=== PATIENT | male | born 2000 | race Caucasian/White ===

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

== ENCOUNTER 2023-04-30 17:28 | Inpatient (IN) | payer BC, MEDICAID ==
[~2023-04-30] VITALS: Ht 167.6 cm; Wt 81.4 kg
[~2023-04-30 17:28] MED LIST: EPIN0.3P3 IM
[2023-04-30] MEDS ORDERED: acetaminophen 325mg tablet PO STA (17:33)
--- NOTE | 2023-04-30 17:33 | NUR ---
PT PLACED ON 4L O2 VIA NC WITH IMPROVEMENT TO 95% SPO2
[2023-04-30] MEDS ORDERED: ipratropium/albuterol 3ml nebule NEB ONE (17:35)
[2023-04-30] MEDS ORDERED: normal saline 1000ML IV soln IV ONE (17:35)
[2023-04-30 17:51] VITALS: PULSE 121; PULSE 78; RESP 18; RESP 2; O2SAT 92
[2023-04-30 18:22] LABS: BASOPHILS % (AUTO) 0.1 % (0-1); EOSINOPHILS # (AUTO) 0.1 X10'3 (0-0.9); EOSINOPHILS % (AUTO) 0.4 % (0-6); HEMATOCRIT 48.6 % (42.0-52.0); HEMOGLOBIN 16.2 g/dl (14.0-17.9); LYMPHOCYTES # (AUTO) 1.5 X10'3 (1.1-4.8); LYMPHOCYTES % (AUTO) 4.8 % (21-51); MEAN CORPUSCULAR HEMOGLOBIN 29.9 PG (27.0-31.0); MEAN CORPUSCULAR HGB CONC 33.4 g/dL (33.0-36.5); MEAN CORPUSCULAR VOLUME 89.3 FL (78-98); MEAN PLATELET VOLUME 9.5 FL (7.4-10.4); MONOCYTES # (AUTO) 2.6 X10'3 (0-0.9); MONOCYTES % (AUTO) 8.6 % (2-12); NEUTROPHILS % (AUTO) 86.1 % (42-75); PLATELET COUNT 279 X10'3 (140-440); RED BLOOD COUNT 5.44 X10'6 (4.70-6.10); RED CELL DISTRIBUTION WIDTH 13.3 % (11.5-14.5)
[2023-04-30 18:24] LABS: WHITE BLOOD COUNT 30.3 X10'3 (4.5-11.0)
[2023-04-30] MEDS ORDERED: CefTRIAXone/D5W-Rocephin 1gm 50 ML IV ONE (18:30)
[2023-04-30] MEDS ORDERED: azithromycin/NS 500mg/250ml 250 ML IV ONE (18:30)
[2023-04-30 19:00] LABS: ALANINE AMINOTRANSFERASE 34 U/L (12-78); ALBUMIN 3.8 G/DL (3.4-5.0); ALBUMIN/GLOBULIN RATIO 1.1 (1.1-1.5); ALKALINE PHOSPHATASE 79 IU/L (46-116); ANION GAP 10 (8-16); ASPARTATE AMINO TRANSFERASE 15 U/L (10-37); BLOOD UREA NITROGEN 9 MG/DL (7-18); BUN/CREATININE RATIO 9.8 (10.0-20.0); CALCIUM 9.9 MG/DL (8.5-10.1); CHLORIDE 103 MMOL/L (99-107); CREATININE 0.92 MG/DL (0.60-1.10); GLUCOSE 125 MG/DL (70-104); POTASSIUM 3.9 MMOL/L (3.5-5.1); SODIUM 137 MMOL/L (135-145); TOTAL CARBON DIOXIDE 23.6 MMOL/L (24-32); TOTAL PROTEIN 7.2 G/DL (6.4-8.2); eCRCL 115 ML/MIN; eGFR > 90 ML/MIN
[2023-04-30 19:08] LABS: PRO BRAIN NATRIURETIC PEPTIDE < 30 PG/ML (0-125)
--- NOTE | 2023-04-30 19:26 | NUR ---
NOTIFIED THE PA CHANTELL THAT PT IS C/O NAUSEA AND WOULD LIKE SOME CRACKER, PER PA VERBAL ORDER TO GIVE ZOFRAN 4 MG IV ONCE AND OK TO GIVE CRACKER.
[2023-04-30] MEDS ORDERED: ondansetron/PF 4mg/2ml inj IV ONE (19:30)
[2023-04-30 19:33] LABS: D-DIMER 0.83 MG/L FEU (0-0.50)
[2023-04-30] MEDS ORDERED: iohexol 350MG/ML 100ml bottle IV ONE (19:50)
[2023-04-30 20:09] LABS: BILIRUBIN,URINE SMALL (Neg); CLARITY,URINE SLIGHTLY CLOUDY (Clear); GLUCOSE, URINE NEGATIVE (Neg); KETONES,URINE 15 mg/dl (Neg); LEUKOCYTE ESTERASE ,URINE NEGATIVE (Neg); NITRITES, URINE NEGATIVE (Neg); OCCULT BLOOD,URINE TRACE-INTACT (Neg); PH,URINE 5.5 (4.8-8.0); PROTEIN,URINE TRACE mg/dl (Neg); UROBILINOGEN,URINE 0.2 E.U/dL (0.2-1.0)
[2023-04-30 20:26] LABS: COLOR,URINE DARK YELLOW (Yellow); UA COLLECTION TYPE VOIDED
[2023-04-30 20:40] LABS: MUCUS STRANDS MANY /LPF (Neg); SQUAMOUS EPITHELIAL CELL,UR FEW /LPF (FEW)
[2023-04-30 20:41] LABS: RBC,URINE 0-2 /HPF (0-2); TRANSITIONAL EPI CELLS,URINE FEW /HPF; WBC,URINE 0-4 /HPF (0-4)
[2023-04-30 20:45] LABS: AMORPHOUS URATES 1+
[2023-04-30 20:46] LABS: BACTERIA,URINE 1+ /HPF (Neg)
[2023-04-30 21:45] LABS: TOTAL CELLS COUNTED 100
[2023-04-30 21:50] LABS: PLATELET ESTIMATE NORMAL
[2023-04-30] MEDS ORDERED: albuterol 2.5 MG/3 ML nebule NEB ONE (23:05)
--- NOTE | 2023-04-30 23:06 | NUR ---
BED 6 BREATHING TREATMENT
[2023-04-30 23:23] VITALS: PULSE 105; RESP 16
[2023-04-30 23:34] VITALS: PULSE 102; RESP 18; O2SAT 92
[2023-05-01] VITALS (7 sets, daily range): BP systolic 113–114; BP diastolic 61–64; PULSE 118–133; RESP 16–22; TEMP 97.6–100.3; O2SAT 94–96
[2023-05-01] MEDS ORDERED: mag hydrox/Alum hydrox/simeth 30ml oral suspension PO PRN (00:50)
[2023-05-01] MEDS ORDERED: furosemide 40mg/4ml inj IV ONE (00:50)
[2023-05-01] MEDS ORDERED: potassium Cl 20 mEq SR tablet PO PRN ×2 (00:50)
[2023-05-01] MEDS ORDERED: magnesium 4gm in 100ml NS 100 ML IV PRN (00:50)
[2023-05-01] MEDS ORDERED: PERFLUTREN PROTEIN-A MICROSPHR (Optison) 0.22 MG/ML 3ML VIAL IV ONE (00:50)
[2023-05-01] MEDS ORDERED: magnesium hydroxide 30ml (MOM) UD suspension PO PRN (00:50)
[2023-05-01] MEDS ORDERED: acetaminophen 325mg tablet PO PRN (00:50)
[2023-05-01] MEDS ORDERED: HYDROcodone/acetaminophen 5mg/325mg tablet PO PRN (00:50)
[2023-05-01] MEDS ORDERED: ondansetron/PF 4mg/2ml inj IV PRN (00:50)
[2023-05-01] MEDS ORDERED: magnesium 2GM in 50ml NS 50 ML IV PRN (00:50)
[2023-05-01] MEDS ORDERED: albuterol 2.5 MG/3 ML nebule NEB PRN (00:50)
[2023-05-01] MEDS ORDERED: potassium Cl 40MEQ/1/2NS 520ml 520 ML IV PRN (00:50)
[2023-05-01] MEDS: normal saline 1000ml 1,000 ML IV SCH ×3 (01:36→20:50)
--- NOTE | 2023-05-01 02:10 | NUR ---
300mL urine output post lasix
--- NOTE | 2023-05-01 03:37 | NUR ---
900mL urine output
--- NOTE | 2023-05-01 06:39 | NUR ---
Patient in room ED 6. I have received report from FILIPE HOWE and had the opportunity to ask questions and assume patient care.
[2023-05-01 07:23] LABS: C-REACTIVE PROTEIN 12.53 MG/DL (0.0-0.5); MAGNESIUM 1.7 MG/DL (1.5-2.4)
[2023-05-01 07:53] LABS: RHEUM FACTOR QUAL REFLEX TITER NEGATIVE (Neg)
[2023-05-01] MEDS: K and/or MAG REPLACEMENT MC SCH ×2 (08:00→20:00)
[2023-05-01] MEDS: CefTRIAXone 2gm/D5W 50ml BAG 50 ML IV SCH (08:00)
[2023-05-01] MEDS: docusate sod 100mg capsule PO SCH ×2 (08:00→20:00)
[2023-05-01] MEDS: azithromycin/NS 500mg/250ml 250 ML IV SCH (08:41)
[2023-05-01 14:40] LABS: URINE AMPHETAMINE SCREEN NEGATIVE (Neg); URINE BARBITUATE SCREEN NEGATIVE (Neg); URINE BENZODIAZEPINES SCREEN NEGATIVE (Neg); URINE CANNABINOID SCREEN NEGATIVE (Neg); URINE COCAINE SCREEN NEGATIVE (Neg); URINE METHADONE SCREEN NEGATIVE (Neg); URINE OPIATE SCREEN NEGATIVE (Neg); URINE PHENCYCLIDINE SCREEN NEGATIVE (Neg)
[2023-05-01] MEDS: acetaminophen 325mg tablet PO PRN (17:25)
--- NOTE | 2023-05-01 18:59 | NUR ---
Problems reprioritized. Patient report given, questions answered & plan of care reviewed with FILIPE PERALTA.
[2023-05-01] MEDS: ipratropium/albuterol 3ml nebule NEB PRN (19:29)
[2023-05-02] VITALS (14 sets, daily range): BP systolic 119–126; BP diastolic 50–76; PULSE 95–125; RESP 15–22; TEMP 97.9–101.3; O2SAT 94–99
[2023-05-02] MEDS: ipratropium/albuterol 3ml nebule NEB PRN ×2 (01:47→11:21)
[2023-05-02] MEDS: acetaminophen 325mg tablet PO PRN (02:52)
[2023-05-02] MEDS ORDERED: VILA10TA2 PO (04:17)
[2023-05-02] MEDS: normal saline 1000ml 1,000 ML IV SCH (04:28)
--- NOTE | 2023-05-02 06:45 | NUR ---
Patient in room ORTHO 4021. I have received report from FILIPE Murillo and had the opportunity to ask questions and assume patient care.
[2023-05-02] MEDS: azithromycin/NS 500mg/250ml 250 ML IV SCH (07:03)
[2023-05-02] MEDS: docusate sod 100mg capsule PO SCH ×2 (07:06→20:00)
[2023-05-02] MEDS: HYDROcodone/acetaminophen 10/325mg tab PO PRN (07:06)
[2023-05-02 07:20] LABS: BASOPHILS % (AUTO) 0.2 % (0-1); EOSINOPHILS # (AUTO) 0.3 X10'3 (0-0.9); EOSINOPHILS % (AUTO) 1.5 % (0-6); HEMATOCRIT 42.2 % (42.0-52.0); LYMPHOCYTES # (AUTO) 1.5 X10'3 (1.1-4.8); LYMPHOCYTES % (AUTO) 8.1 % (21-51); MEAN CORPUSCULAR HEMOGLOBIN 29.8 PG (27.0-31.0); MEAN CORPUSCULAR HGB CONC 33.1 g/dL (33.0-36.5); MEAN PLATELET VOLUME 9.8 FL (7.4-10.4); MONOCYTES # (AUTO) 1.6 X10'3 (0-0.9); MONOCYTES % (AUTO) 8.7 % (2-12); NEUTROPHILS # (AUTO) 15.1 X10'3 (1.8-7.7); NEUTROPHILS % (AUTO) 81.5 % (42-75); PLATELET COUNT 198 X10'3 (140-440); RED BLOOD COUNT 4.69 X10'6 (4.70-6.10); RED CELL DISTRIBUTION WIDTH 13.3 % (11.5-14.5); WHITE BLOOD COUNT 18.5 X10'3 (4.5-11.0)
[2023-05-02 07:57] LABS: ALANINE AMINOTRANSFERASE 20 U/L (12-78); ALBUMIN 2.6 G/DL (3.4-5.0); ALBUMIN/GLOBULIN RATIO 0.7 (1.1-1.5); ALKALINE PHOSPHATASE 64 IU/L (46-116); ANION GAP 7 (8-16); ASPARTATE AMINO TRANSFERASE 7 U/L (10-37); BILIRUBIN,TOTAL 0.6 MG/DL (0.1-1.0); BLOOD UREA NITROGEN 4 MG/DL (7-18); BUN/CREATININE RATIO 4.2 (10.0-20.0); CALCIUM 8.5 MG/DL (8.5-10.1); CHLORIDE 102 MMOL/L (99-107); CREATININE 0.95 MG/DL (0.60-1.10); GLUCOSE 92 MG/DL (70-104); MAGNESIUM 1.8 MG/DL (1.5-2.4); POTASSIUM 4.2 MMOL/L (3.5-5.1); SODIUM 135 MMOL/L (135-145); THYROID STIMULATING HORMONE 1.66 ulU/ml (0.34-4.50); TOTAL CARBON DIOXIDE 26.4 MMOL/L (24-32); TOTAL PROTEIN 6.1 G/DL (6.4-8.2); eCRCL 111 ML/MIN; eGFR > 90 ML/MIN
[2023-05-02] MEDS: K and/or MAG REPLACEMENT MC SCH ×2 (08:00→20:00)
[2023-05-02 08:05] LABS: HIV ANTIBODY 1&2 RAPID NON-REACTIVE (Neg)
[2023-05-02] MEDS: CefTRIAXone 2gm/D5W 50ml BAG 50 ML IV SCH (08:49)
[2023-05-02] MEDS: acetaminophen 325mg tablet PO SCH (12:18)
[2023-05-02] MEDS ORDERED: furosemide 20 MG/2 ML vial IV ONE (16:30)
--- NOTE | 2023-05-02 16:47 | NUR ---
I pagged respiratory to do an ABG that was ordered by the resident.
[2023-05-02] MEDS ORDERED: methylPREDNISolone sod succ 125mg/2ml vial IV ONE (17:10)
[2023-05-02] MEDS ORDERED: cefepime 1GM/NS ADD-VANTAGE 100 ML IV SCH ×2 (17:10→17:21)
[2023-05-02 17:15] LABS: ABG BASE EXCESS -0.6 mmol/L (-2.0-2.0); ABG HCO3 23.5 mmol/L (22.0-26.0); ABG OXYGEN SATURATION 94.7 % (94-97); ABG PCO2 (T) 37.5 mmHg (35.0-48.0); ABG PH (T) 7.417 (7.340-7.440); ABG PO2 (T) 62.6 mmHg (75.0-100.0); ALLEN'S TEST POSITIVE; FHHb 5.2 % (0.0-5.0); FLOW 4 L/min; FMetHb 0.2 % (0.0-1.5); FO2Hb 93.6 % (94-97); MODE NASAL CANNULA; PATIENT TEMPERATURE 37.1; TOTAL HEMOGLOBIN 15.1 G/dl (14.0-17.9)
[2023-05-02] MEDS ORDERED: ipratropium/albuterol 3ml nebule NEB PRN (17:15)
[2023-05-02] MEDS ORDERED: ipratropium/albuterol 3ml nebule NEB SCH (17:15)
--- NOTE | 2023-05-02 17:20 | NUR ---
I notified pharmacy about needing the antibiotics and said it will be 10 minutes.
[2023-05-02] MEDS: vancomycin/NS 1 GM ADD-VANTAGE 250 ML X 1 DOSE IV SCH ×2 (18:01→18:02)
--- NOTE | 2023-05-02 18:30 | NUR ---
Problems reprioritized. Patient report given, questions answered & plan of care reviewed with FILIPE Heath.
--- NOTE | 2023-05-02 18:50 | NUR ---
Patient in room ORTHO 4021. I have received report from Dagmar DENT and had the opportunity to ask questions and assume patient care.
[2023-05-02] MEDS: ipratropium/albuterol 3ml nebule NEB SCH ×2 (19:59→23:24)
[2023-05-03] VITALS (13 sets, daily range): BP systolic 112–136; BP diastolic 52–67; PULSE 94–108; RESP 16–20; TEMP 97.8–98.6; O2SAT 92–98
[2023-05-03] MEDS ORDERED: methylPREDNISolone sod succ 125mg/2ml vial IV SCH
[2023-05-03] MEDS: acetaminophen 325mg tablet PO SCH ×4 (00:12→20:32)
[2023-05-03] MEDS: ipratropium/albuterol 3ml nebule NEB SCH ×3 (03:15→11:28)
[2023-05-03 06:18] LABS: BASOPHILS % (AUTO) 0.1 % (0-1); EOSINOPHILS # (AUTO) 0.3 X10'3 (0-0.9); HEMATOCRIT 41.4 % (42.0-52.0); HEMOGLOBIN 13.8 g/dl (14.0-17.9); LYMPHOCYTES # (AUTO) 0.7 X10'3 (1.1-4.8); LYMPHOCYTES % (AUTO) 5.5 % (21-51); MEAN CORPUSCULAR HEMOGLOBIN 29.9 PG (27.0-31.0); MEAN CORPUSCULAR HGB CONC 33.4 g/dL (33.0-36.5); MEAN CORPUSCULAR VOLUME 89.5 FL (78-98); MEAN PLATELET VOLUME 9.8 FL (7.4-10.4); MONOCYTES # (AUTO) 0.8 X10'3 (0-0.9); NEUTROPHILS # (AUTO) 11.4 X10'3 (1.8-7.7); NEUTROPHILS % (AUTO) 86.4 % (42-75); PLATELET COUNT 238 X10'3 (140-440); RED BLOOD COUNT 4.63 X10'6 (4.70-6.10); RED CELL DISTRIBUTION WIDTH 13.4 % (11.5-14.5); WHITE BLOOD COUNT 13.2 X10'3 (4.5-11.0)
[2023-05-03 06:45] LABS: ALANINE AMINOTRANSFERASE 21 U/L (12-78); ALBUMIN 2.8 G/DL (3.4-5.0); ALBUMIN/GLOBULIN RATIO 0.7 (1.1-1.5); ALKALINE PHOSPHATASE 62 IU/L (46-116); ANION GAP 10 (8-16); ASPARTATE AMINO TRANSFERASE 10 U/L (10-37); BILIRUBIN,TOTAL 0.3 MG/DL (0.1-1.0); BLOOD UREA NITROGEN 4 MG/DL (7-18); BUN/CREATININE RATIO 4.9 (10.0-20.0); CALCIUM 9.5 MG/DL (8.5-10.1); CHLORIDE 103 MMOL/L (99-107); CREATININE 0.82 MG/DL (0.60-1.10); GLUCOSE 148 MG/DL (70-104); MAGNESIUM 2.2 MG/DL (1.5-2.4); SODIUM 138 MMOL/L (135-145); TOTAL CARBON DIOXIDE 25.3 MMOL/L (24-32); TOTAL PROTEIN 6.9 G/DL (6.4-8.2); eCRCL 129 ML/MIN; eGFR > 90 ML/MIN
--- NOTE | 2023-05-03 06:55 | NUR ---
Patient in room ORTHO 4021. I have received report from FILIPE Heath and had the opportunity to ask questions and assume patient care.
--- NOTE | 2023-05-03 06:56 | NUR ---
Problems reprioritized. Patient report given, questions answered & plan of care reviewed with Dagmar DENT.
[2023-05-03] MEDS: methylPREDNISolone sod succ/PF 40mg inj. IV SCH ×2 (07:38→20:32)
[2023-05-03] MEDS: CefTRIAXone 2gm/D5W 50ml BAG 50 ML IV SCH (07:46)
[2023-05-03] MEDS: docusate sod 100mg capsule PO SCH ×2 (07:48→20:00)
[2023-05-03] MEDS: K and/or MAG REPLACEMENT MC SCH ×2 (07:50→20:00)
[2023-05-03] MEDS: azithromycin/NS 500mg/250ml 250 ML IV SCH (09:00)
[2023-05-03] MEDS: vancomycin/NS 1 GM ADD-VANTAGE 250 ML X 1 DOSE IV SCH (11:41)
[2023-05-03] MEDS: HYDROcodone/acetaminophen 10/325mg tab PO PRN (12:45)
[2023-05-03] MEDS: heparin, porcine 5000 units/ml vial SQ SCH ×2 (12:45→20:34)
--- NOTE | 2023-05-03 18:40 | NUR ---
Problems reprioritized. Patient report given, questions answered & plan of care reviewed with FILIPE Flores.
[2023-05-03] MEDS: ipratropium/albuterol 3ml nebule NEB PRN (19:36)
[2023-05-04] MEDS ORDERED: benzonatate 100mg capsule PO PRN (01:00)
[2023-05-04] MEDS ORDERED: VANCOMYCIN LEVEL IV ONE (02:30)
--- NOTE | 2023-05-04 06:08 | NUR ---
reported to days. noted pt resting w/o distress - and may discharge today. pt on RA
--- NOTE | 2023-05-04 06:12 | NUR ---
received report from zee oropeza
[2023-05-04 06:13] VITALS: BP 120/61; PULSE 80; RESP 18; TEMP 97.8; O2SAT 93
[2023-05-04] MEDS: acetaminophen 325mg tablet PO SCH ×2 (06:53)
[2023-05-04] MEDS: methylPREDNISolone sod succ/PF 40mg inj. IV SCH (06:53)
[2023-05-04] MEDS: azithromycin/NS 500mg/250ml 250 ML IV SCH (06:56)
[2023-05-04 06:59] LABS: BASOPHILS % (AUTO) 0.2 % (0-1); EOSINOPHILS # (AUTO) 0.5 X10'3 (0-0.9); EOSINOPHILS % (AUTO) 3.3 % (0-6); HEMATOCRIT 43.7 % (42.0-52.0); HEMOGLOBIN 14.4 g/dl (14.0-17.9); LYMPHOCYTES # (AUTO) 1.8 X10'3 (1.1-4.8); LYMPHOCYTES % (AUTO) 10.8 % (21-51); MEAN CORPUSCULAR HEMOGLOBIN 29.7 PG (27.0-31.0); MEAN CORPUSCULAR VOLUME 90.1 FL (78-98); MEAN PLATELET VOLUME 9.5 FL (7.4-10.4); MONOCYTES % (AUTO) 6.3 % (2-12); NEUTROPHILS % (AUTO) 79.4 % (42-75); PLATELET COUNT 334 X10'3 (140-440); RED BLOOD COUNT 4.84 X10'6 (4.70-6.10); RED CELL DISTRIBUTION WIDTH 13.6 % (11.5-14.5); WHITE BLOOD COUNT 16.3 X10'3 (4.5-11.0)
[2023-05-04] MEDS: heparin, porcine 5000 units/ml vial SQ SCH (06:59)
[2023-05-04] MEDS: docusate sod 100mg capsule PO SCH (07:05)
[2023-05-04] MEDS: ipratropium/albuterol 3ml nebule NEB PRN (07:09)
[2023-05-04 07:10] VITALS: PULSE 108; RESP 16; O2SAT 95
[2023-05-04 07:10] LABS: ALANINE AMINOTRANSFERASE 33 U/L (12-78); ALBUMIN 3.1 G/DL (3.4-5.0); ALBUMIN/GLOBULIN RATIO 0.7 (1.1-1.5); ALKALINE PHOSPHATASE 75 IU/L (46-116); ANION GAP 10 (8-16); ASPARTATE AMINO TRANSFERASE 16 U/L (10-37); BILIRUBIN,TOTAL 0.2 MG/DL (0.1-1.0); BLOOD UREA NITROGEN 13 MG/DL (7-18); BUN/CREATININE RATIO 14.6 (10.0-20.0); CALCIUM 9.6 MG/DL (8.5-10.1); CHLORIDE 102 MMOL/L (99-107); CREATININE 0.89 MG/DL (0.60-1.10); GLUCOSE 123 MG/DL (70-104); MAGNESIUM 2.3 MG/DL (1.5-2.4); POTASSIUM 4.5 MMOL/L (3.5-5.1); SODIUM 137 MMOL/L (135-145); TOTAL CARBON DIOXIDE 25.5 MMOL/L (24-32); TOTAL PROTEIN 7.5 G/DL (6.4-8.2); eCRCL 118 ML/MIN; eGFR > 90 ML/MIN
[2023-05-04 07:15] VITALS: PULSE 102; RESP 18
[2023-05-04] MEDS: K and/or MAG REPLACEMENT MC SCH (08:00)
[2023-05-04] MEDS: CefTRIAXone 2gm/D5W 50ml BAG 50 ML IV SCH (08:37)
[2023-05-04 09:09] LABS: C-REACTIVE PROTEIN 4.34 MG/DL (0.0-0.5)
[2023-05-04 10:26] VITALS: BP 143/64; PULSE 106; RESP 16; TEMP 98.6; O2SAT 95
[2023-05-04] MEDS ORDERED: LEVO750T68 PO (11:37)
[2023-05-04] MEDS ORDERED: PRED10TA23 PO (11:42)
[2023-05-04] MEDS ORDERED: BENZ-111 PO (11:49)
[2023-05-04] MEDS ORDERED: ACET-1008 PO (11:49)
--- NOTE | 2023-05-04 13:31 | NUR ---
pt d/c with instructions, understanding of instructions and w/all belongings walking out accompanied by nursing staff to private vehicle to go home and f/u w/pcp
[2023-05-04] MEDS ORDERED: methylPREDNISolone sod succ/PF 40mg inj. IV SCH (20:00)
[2023-05-05] MEDS ORDERED: azithromycin 250mg tablet PO SCH (08:00)
== END 2023-05-04 13:25 | disposition home or self-care (01) | DRG 871 ==
LOC: ER 17:28 → ED HOLD 05-01 00:59 → ORTHO 4S 05-01 06:55
PROVIDERS: ADMIT Family Medicine; ATTEND Family Medicine
PROC: B32T1ZZ Computerized Tomography (CT Scan) of Left Pulmonary Artery using Low Osmolar Contrast (ICD-10-PCS; principal; 2023-04-30)
PROC: B3201ZZ Computerized Tomography (CT Scan) of Thoracic Aorta using Low Osmolar Contrast (ICD-10-PCS; 2023-04-30)
PROC: B32S1ZZ Computerized Tomography (CT Scan) of Right Pulmonary Artery using Low Osmolar Contrast (ICD-10-PCS; 2023-04-30)
DX: A41.9 Sepsis, unspecified organism (principal); J18.9 Pneumonia, unspecified organism; J96.01 Acute respiratory failure with hypoxia; I50.9 Heart failure, unspecified; G40.909 Epilepsy, unspecified, not intractable, without status epilepticus; F41.9 Anxiety disorder, unspecified; Z20.822 Contact with and (suspected) exposure to COVID-19; F32.A Depression, unspecified; Z88.0 Allergy status to penicillin; Z79.899 Other long term (current) drug therapy
CPT/HCPCS: 36415; 36600; 71045; 71250; 71275; 80053; 80305; 81001; 82803; 83605; 83735; 83880; 84145; 84443; 84484; 85007; 85018; 85025; 85379; 85651; 86140; 86430; 86703; 87040; 87070; 87502; 87503; 87634; 87811; 93005; 93306; 94640; 94760; 97110; 97116; 97161; 97530; 99285; G0378; J0456; J0696; J1644; J1940; J2405; J2920; J2930; J3370; J3490; J7030; Q9967